=== PATIENT | male | born 1990 | race Caucasian/White ===

== ENCOUNTER 2023-03-08 07:53 | Day surgery (SDC) | payer BC ==
[2023-03-08] VITALS (16 sets, daily range): BP systolic 102–127; BP diastolic 7–84
[~2023-03-08] VITALS: Ht 180.3 cm; Wt 94.3 kg
[~2023-03-08 07:53] MED LIST: PANT-47 PO; cefazolin 2gm/D5W 100mL 100 ML IV ONE; famotidine 20mg tablet PO ONE; ringers solution, lacted 1,000 ML IV SCH
[2023-03-08 08:48] LABS: BASOPHILS # (AUTO) 0.1 X10'3 (0-0.2); BASOPHILS % (AUTO) 1.2 % (0-1); EOSINOPHILS # (AUTO) 0.2 X10'3 (0-0.9); LYMPHOCYTES # (AUTO) 1.4 X10'3 (1.1-4.8); LYMPHOCYTES % (AUTO) 30.6 % (21-51); MEAN CORPUSCULAR HEMOGLOBIN 29.7 PG (27.0-31.0); MEAN CORPUSCULAR HGB CONC 33.7 g/dL (33.0-36.5); MEAN CORPUSCULAR VOLUME 88.3 FL (78-98); MEAN PLATELET VOLUME 6.6 FL (7.4-10.4); MONOCYTES # (AUTO) 0.5 X10'3 (0-0.9); MONOCYTES % (AUTO) 9.8 % (2-12); NEUTROPHILS # (AUTO) 2.5 X10'3 (1.8-7.7); NEUTROPHILS % (AUTO) 53.4 % (42-75); PRE OP HEMATOCRIT 44.8 % (42.0-52.0); PRE OP HEMOGLOBIN 15.1 g/dL (14.0-17.9); PRE OP PLATELET COUNT 199 X10'3 (140-440); RED BLOOD COUNT 5.08 X10'6 (4.70-6.10); RED CELL DISTRIBUTION WIDTH 12.3 % (11.5-14.5)
[2023-03-08 09:01] LABS: ALBUMIN/GLOBULIN RATIO 1.2 (1.1-1.5); ALKALINE PHOSPHATASE 47 IU/L (46-116); BLOOD UREA NITROGEN 22 MG/DL (7-18); BUN/CREATININE RATIO 19.6 (10.0-20.0); CALCIUM 9.3 MG/DL (8.5-10.1); CHLORIDE 104 MMOL/L (99-107); CREATININE 1.12 MG/DL (0.60-1.10); PRE OP ALT 32 U/L (30-65); PRE OP ANION GAP 8 (8-16); PRE OP AST 31 U/L (10-37); PRE OP BILIRUB, TOTAL 0.8 MG/DL (0.0-1.0); PRE OP GLUCOSE 90 MG/DL (70-104); PRE OP POTASSIUM 3.7 MMOL/L (3.4-5.1); PRE OP SODIUM 139 MMOL/L (135-145); TOTAL CARBON DIOXIDE 27.3 MMOL/L (24-32); TOTAL PROTEIN 7.3 G/DL (6.4-8.2); eGFR 75 ML/MIN
[2023-03-08] MEDS ORDERED: BUPIVAcaine/PF 2.5 mg/ml (0.25%) 30ml vial ONE (10:31)
[2023-03-08] MEDS ORDERED: BUPIVACAINE liposomal/PF 13.3 MG/ML vial IM ONE (10:31)
[2023-03-08] MEDS ORDERED: meperidine/PF 25mg/ml syringe IV PRN ×3 (10:35)
[2023-03-08] MEDS ORDERED: morphine 4 MG/ML inj SYRINge IV PRN (10:35)
[2023-03-08] MEDS ORDERED: morphine 2 MG/ML inj. syringe IV PRN (10:35)
[2023-03-08] MEDS ORDERED: ondansetron/PF 4mg/2ml inj IV PRN (10:35)
[2023-03-08] MEDS ORDERED: proCHLORperazine 10 MG/2 ml inj IV PRN (10:35)
[2023-03-08] MEDS ORDERED: ringers solution, lacted 1,000 ML IV SCH (10:35)
[2023-03-08] MEDS ORDERED: fentaNYL/PF 50MCG/1 ML 2ML syringe ONE (10:44)
[2023-03-08] MEDS ORDERED: propofol inj 20 ML IV ONE (10:45)
[2023-03-08] MEDS ORDERED: rocuronium 10mg/ml inj IV ONE (10:45)
[2023-03-08] MEDS ORDERED: midazolam 1 mg/ML 2ml injection ONE (10:45)
[2023-03-08] MEDS ORDERED: sevoflurane 250ml liquid IH ONE (10:46)
[2023-03-08] MEDS ORDERED: dexamethasone sod phosphate 4mg/ml inj. ONE (10:59)
[2023-03-08] MEDS ORDERED: LIDOcaine-PF 1% 20mL vial 20 ML VIAL IJ ONE (11:00)
[2023-03-08] MEDS ORDERED: ondansetron/PF 4mg/2ml inj ONE (12:00)
[2023-03-08] MEDS ORDERED: acetaminophen 1,000mg/100ml IV 100 ML IV ONE (12:01)
[2023-03-08] MEDS ORDERED: glycopyrrolate 0.2mg/ml inj ONE (12:04)
[2023-03-08] MEDS ORDERED: neostigmine methylsulfate 1 MG/ML 10ml vial ONE (12:04)
--- NOTE | 2023-03-08 12:26 | NUR ---
Received from OR via JOSE E, accompanied by Anesthesiologist and report given by ROMAN Anesthesiologist. PATIENT WAKING UP, NO S/S OF PAIN, V/S WNL, PIV 20G LEFT FOREARM, BANDAID LAPS SITES CLOSED C/D/I TO ABDOMEN WITH ABDOMINAL BINDER. Addendum: 03/08/23 at 1245 by Giuseppe Jacob RN Amended: Links added.
[2023-03-08] MEDS ORDERED: oxyCODONE/APAP 5-325mg tablet PO PRN (12:30)
--- NOTE | 2023-03-08 14:46 | NUR ---
ALL DISCHARGE CRITERIA HAS BEEN MET. VSS, PAIN AT A TOLERABLE LEVEL, ABLE TO SAFELY AMBULATE AND TRANSFER SELF. IV TAKEN OUT WITHOUT ANY COMPLICATIONS. ALL DISCHARGE INSTRUCTIONS COVERED WITH PATIENT AND ALL QUESTIONS ANSWERED. PATIENT TAKEN OUT VIA WHEELCHAIR WITH ALL BELONGINGS TO PERSONAL VEHICLE WHERE FAMILY DROVE PATIENT HOME. Addendum: 03/08/23 at 1500 by Giuseppe Jacob RN Amended: Links added.
== END 2023-03-08 14:46 | disposition home or self-care (01) ==
LOC: PAS 07:53
PROVIDERS: ATTEND Surgery
DX: K43.6 Other and unspecified ventral hernia with obstruction, without gangrene (principal); K42.9 Umbilical hernia without obstruction or gangrene; K21.9 Gastro-esophageal reflux disease without esophagitis; Z98.890 Other specified postprocedural states; Z79.899 Other long term (current) drug therapy; Z72.89 Other problems related to lifestyle
CPT/HCPCS: 36415; 49592; 64488; 80053; 85025; C1776; C1781; C9290; J0131; J0690; J1100; J2175; J2250; J2405; J2704; J2710; J3010; J3490; J7030; J7120; S2900; Z7506; Z7508; Z7512; A4215; A4618